=== PATIENT | male | born 1990 | race Caucasian/White ===

== ENCOUNTER 2021-08-03 18:05 | Emergency (ER) | payer OTHER | END 2021-08-03 19:20 | disposition left against medical advice (07) | LOC: FER 18:05 | DX: M25.511 Pain in right shoulder (principal); Z53.29 Procedure and treatment not carried out because of patient's decision for other reasons; W19.XXXA Unspecified fall, initial encounter; Y93.89 Activity, other specified; Y92.009 Unspecified place in unspecified non-institutional (private) residence as the place of occurrence of the external cause | CPT/HCPCS: 73030 ==